=== PATIENT | male | born 1970 | race American Indian/Alaskan Native ===

== ENCOUNTER 2021-10-17 04:47 | Emergency (ER) | payer MEDICAID, SELFPAY ==
--- NOTE | 2021-10-17 04:51 | DI.RAD.S_ITS ---
PROCEDURE: XR CHEST 1V INDICATIONS: Chest pain TECHNIQUE: One view of the chest was acquired. COMPARISON: [facility], CR, XR CHEST 2 VIEWS, 07/16/2020, 19:13. [facility], CR, CHEST 2 VIEW, 08/24/2006, 15:00. FINDINGS: Surgical changes and devices: None. Lungs and pleura: Lungs are clear. No pleural effusions or pneumothorax. Mediastinum: Mediastinal contours appear normal. Heart size is normal. Bones and chest wall: No suspicious bony lesions. Overlying soft tissues appear unremarkable. IMPRESSION: No acute pulmonary process. The above findings are concordant with preliminary report. Dictated by: Diana Martin M.D. on 10/17/2021 at 8:03 Approved by: Diana Martin M.D. on 10/17/2021 at 8:03
[2021-10-17 04:55] VITALS: BP 156/88; PULSE 76; RESP 17; TEMP 36.9; O2SAT 97; BMI 29.0
--- NOTE | 2021-10-17 05:08 | ED.GENADULT ---
HPI - General Adult General Chief complaint: Abdominal Pain Stated complaint: chest pain x1 hour Time Seen by Provider: 10/17/21 04:50 Source: patient Mode of arrival: Ambulatory History of Present Illness HPI narrative: 51-year-old male who is here for evaluation of was initially described as chest discomfort. He initially stated that the discomfort has been going on for the past hour but upon further questioning potentially is been going on for several hours. He states that he was drinking some beer when the symptoms started. He did throw up 1 time since the onset of the symptoms. That did not change his pain at all. He thinks that earlier in the evening he started to have some generalized abdominal discomfort. The pain is now localized in his epigastric region. It is worse when he touches the area and also when he moves. No change in bowel habits. No blood in his vomit. Has not tried anything for the symptoms prior to arrival. Related Data Previous Rx's Medication Instructions Recorded sucralfate 1 gram tablet (Carafate) 1 g PO QACHS #40 tab 10/17/21 Allergies Allergy/AdvReac Type Severity Reaction Status Date / Time No Known Drug Allergies Allergy Verified 10/17/21 04:55 Review of Systems Constitutional Constitutional: Denies fever(s) Cardiovascular Cardiovascular: Reports as per HPI and Reports system reviewed and no additional complaints, except as documented Respiratory Respiratory: Reports as per HPI and Reports system reviewed and no additional complaints, except as documented Gastrointestinal Gastrointestinal: Reports as per HPI and Reports system reviewed and no additional complaints, except as documented Integumentary/Breasts Skin/Breast: Reports system reviewed and no additional complaints, except as documented Hematologic/Lymphatic On Anticoagulants: No Patient History Social History Smoking Status: Current every day smoker Smoking Status: Current every day smoker alcohol intake frequency: 0-2 drinks per day Alcohol type: beer Substance Use Type: does not use Exam Initial Vital Signs Initial Vital Signs: Vital Signs Temperature 98.4 F 10/17/21 04:55 Pulse Rate 76 10/17/21 04:55 Respiratory Rate 17 10/17/21 04:55 Blood Pressure 156/88 H 10/17/21 04:55 Pulse Oximetry 97 10/17/21 04:55 Const General: cooperative and well developed Resp Effort & Inspection: normal respiratory effort Auscultation: clear to auscultation bilaterally Cardio Rate: regular rate Rhythm: regular rhythm GI Inspection: normal to inspection Palpation: soft, No firm, No guarding and tender (Epigastric region) Skin General: no rashes or lesions noted Neuro General: patient alert, patient awake and moves all extremities Extrem General: normal to inspection and capillary refill normal Course Orders Ordered: ED Orders 10/17/21 04:51 XR chest 1V Stat EKG-12 Lead Stat 10/17/21 04:58 Complete Blood Count AUTO DIFF Stat Comprehensive Metabolic Panel Stat Lipase Stat Troponin & CK Cardiac Panel Stat Discontinued Medications Al Hydrox/Mg Hydrox/Simethicone 20 ml/ Lidocaine HCl 15 ml 0 ml PO NOW ONE Stop: 10/17/21 05:10 Last Admin: 10/17/21 05:26 Dose: 20 ml Documented by: PRANAV Pantoprazole Sodium (Pantoprazole 40 Mg Vial) 40 mg IV NOW ONE Stop: 10/17/21 05:10 Last Admin: 10/17/21 05:26 Dose: 40 mg Documented by: PRANAV Vital Signs Vital signs: Vital Signs - 8 hr 10/17/21 04:55 Temperature 98.4 F Pulse Rate 76 Respiratory Rate 17 Blood Pressure 156/88 H Pulse Oximetry 97 Medical Decision Making Lab Data Lab results reviewed: Yes I reviewed the patient's lab results. Result diagrams: 10/17/21 04:58 10/17/21 04:58 Labs: Lab Results 10/17/21 10/17/21 10/17/21 Range/Units 04:58 04:58 04:58 WBC 9.1 (4.5-11.0) X10^3/uL RBC 4.98 (4.5-5.9) X10^6/uL Hgb 14.6 (13.5-17.5) g/dL Hct 42.3 (41-53) % MCV 84.8 (80-100) fL MCH 29.2 (26-34) PG MCHC 34.5 (30-36) % RDW 13.6 (11.6-14.8) % Plt Count 185 (150-400) X10^3/uL Neut % (Auto) 63.7 (50-75) % Lymph % (Auto) 28.2 (25-40) % [place] % (Auto) 5.5 (3-14) % Eos % (Auto) 2.0 (2-4) % Baso % (Auto) 0.6 (0-2) % Neut # (Auto) 5800 (4142-2824) /uL Lymph # (Auto) 2600 (5390-5109) /uL [place] # (Auto) 500 (0-900) /uL Eos # (Auto) 200 (0-450) /uL Baso # (Auto) 100 (0-100) /uL Sodium 134 L (137-145) mmol/L Potassium 4.0 (3.4-5.1) mmol/L Chloride 101 (98-107) mmol/L Carbon Dioxide 22 (22-32) mmol/L BUN 13 (9-20) mg/dL Creatinine 0.81 (0.66-1.25) mg/dL Estimated GFR > 60 (>60) mL/min BUN/Creatinine Ratio 16.0 (6-22) Glucose 302 H (70-100) mg/dL Calcium 8.6 (8.4-10.2) mg/dL Total Bilirubin 0.5 (0.2-1.3) mg/dL AST 25 (17-59) IU/L ALT 20 (<50) IU/L Alkaline Phosphatase 56 (38-126) U/L Total Creatine Kinase 68 (55-170) U/L CK-MB (CK-2) TNP CK-MB (CK-2) Rel Index TNP Troponin I < 0.012 (0.01-0.034) ng/mL Total Protein 7.7 (6.3-8.2) g/dL Albumin 4.4 (3.5-5.0) g/dL Globulin 3.3 (1.7-4.1) g/dL Albumin/Globulin Ratio 1.3 (1.0-2.8) Lipase 434 H (23-300) U/L Imaging Data Chest x-ray: Radiologist's Impression: No acute cardiopulmonary abnormality identified ECG Data Attestation: I personally reviewed and interpreted this ECG as follows: Interpretation: Sinus rhythm Ventricular rate 83 Left axis deviation Normal QRS Normal QTC No ST T wave changes MDM Narrative Medical decision making narrative: Reproducible discomfort in the epigastric region. He has no right upper quadrant tenderness and no left upper quadrant tenderness. His labs are unremarkable except for slightly elevated lipase however does not meet criteria for pancreatitis. He stated that he feels much better after the GI cocktail and Protonix. I have low suspicion for ACS. I have a higher suspicion this is a gastritis most likely related to his alcohol use. Was sent home with a prescription for Carafate. He was given return precautions. He expressed understanding and agreement. Discharge Plan Departure Patient Disposition: Home Clinical Impression: Abdominal pain, Gastritis Instructions: DI for Gastritis, DI for Abdominal Pain-Adult Activity Restrictions/Additional Instructions: I recommend that you take the Carafate as directed. It was electronically transmitted to [employer]. I also recommend a bland diet and decreasing your alcohol intake. Contact your primary doctor for a follow-up. Return to the emergency department for any new or worsening symptoms. Prescriptions: New sucralfate [Carafate] 1 gram tablet 1 g PO QACHS Qty: 40 0RF
[2021-10-17 05:12] LABS: Add Manual Diff / Slide Review NO; Basophils Absolute Auto 100 /uL (0-100); Basophils Percent Auto 0.6 % (0-2); Eosinophils Absolute Auto 200 /uL (0-450); Hematocrit 42.3 % (41-53); Hemoglobin 14.6 g/dL (13.5-17.5); Lymphocytes Absolute Auto 2600 /uL (1100-4500); Lymphocytes Percent Auto 28.2 % (25-40); Mean Corpuscular HGB Conc 34.5 % (30-36); Mean Corpuscular Hemoglobin 29.2 PG (26-34); Mean Corpuscular Volume 84.8 fL (80-100); Monocytes Absolute Auto 500 /uL (0-900); Monocytes Percent Auto 5.5 % (3-14); Neutrophils Absolute Auto 5800 /uL (1500-7000); Neutrophils Percent Auto 63.7 % (50-75); Platelet Count 185 X10^3/uL (150-400); Red Blood Cell Count 4.98 X10^6/uL (4.5-5.9); Red Cell Distribution Width 13.6 % (11.6-14.8); White Blood Cell Count 9.1 X10^3/uL (4.5-11.0)
[2021-10-17 05:14] VITALS: PULSE 81; RESP 21; O2SAT 99
[2021-10-17 05:15] LABS: Creatine Kinase 68 U/L (55-170)
[2021-10-17 05:17] LABS: Alanine Aminotransferase 20 IU/L (<50); Albumin 4.4 g/dL (3.5-5.0); Albumin Globulin Ratio 1.3 (1.0-2.8); Alkaline Phosphatase 56 U/L (38-126); Aspartate Aminotransferase 25 IU/L (17-59); Bilirubin Total 0.5 mg/dL (0.2-1.3); Blood Urea Nitrogen 13 mg/dL (9-20); Calcium 8.6 mg/dL (8.4-10.2); Carbon Dioxide 22 mmol/L (22-32); Chloride 101 mmol/L (98-107); Estimated Glomerular Filt Rate > 60 mL/min (>60); Globulin 3.3 g/dL (1.7-4.1); Glucose 302 mg/dL (70-100); HEMOLYSIS 23 (0-50); Lipase 434 U/L (23-300); Sodium 134 mmol/L (137-145); Total Protein 7.7 g/dL (6.3-8.2)
[2021-10-17] MEDS: PANTOPRAZOLE 40 MG VIAL IV (05:26)
[2021-10-17] MEDS: MAG HYDROX/ALUMINUM/SIMETH SUS 20 ML, LIDOCAINE VISCOUS 2% 15 ML PO (05:26)
[2021-10-17 05:28] LABS: Troponin I < 0.012 ng/mL (0.01-0.034)
[2021-10-17 05:30] VITALS: PULSE 77; RESP 4; O2SAT 99
[2021-10-17 06:00] VITALS: PULSE 82; RESP 1; O2SAT 98
--- NOTE | 2021-10-17 06:21 | PC.NURSE ---
pt states medication given help to relieve the pain
[2021-10-17 06:30] VITALS: PULSE 81; RESP 17; O2SAT 100
[2021-10-17 06:36] VITALS: BP 165/87
== END 2021-10-17 06:37 | disposition home or self-care (01) ==
PROVIDERS: Emergency Provider Emergency Medicine
DX: R07.9 Chest pain, unspecified (principal); K29.70 Gastritis, unspecified, without bleeding
CPT/HCPCS: 36415; 71045; 80053; 82550; 83690; 84484; 85025; 93005; 96374; 99284; C9113